=== PATIENT | female | born 1970 | race Caucasian/White ===

== ENCOUNTER 2020-09-27 16:25 | Emergency (ER) | payer OTHER ==
[~2020-09-27 16:25] MED LIST: AMARYL4 MG PO; ASPIR-LOW81 MG PO; ASPIRIN EC81 MG PO; ATORVASTATIN CA40 MG PO; BENTYL 20MG TAB20 MG PO; BRILINTA PO; BRILINTA90 MG PO; CAMILA0.35 MG PO; CETIRIZINE HCL10 MG PO; CETIRIZINE HCL5 MG PO; COL-RITE100 MG PO; COZAAR50 MG PO; DILAUDID 2 MG TA2 MG PO; FUROSEMIDE20 MG PO; GLIMEPIRIDE4 MG PO; IMDUR ER TAB 3030 MG PO; ISOSORBIDE MONO30 MG PO; LIPITOR TAB 2020 MG PO; LOPRESSOR50 MG PO; LOSARTAN POTASS50 MG PO; METFORMIN HCL500 MG PO; METOPROLOL TART50 MG PO; MONTELUKAST SOD10 MG PO; NITROGLYCERIN0.4 MG SL; NITROSTAT0.4 MG SL; PANTOPRAZOLE SO40 MG PO; PROTONIX40 MG PO; ZOFRAN ODT 4 MG4 MG PO
== END 2020-09-27 18:45 | disposition home or self-care (01) ==
LOC: ER1 16:25
DX: S31.139A Puncture wound of abdominal wall without foreign body, unspecified quadrant without penetration into peritoneal cavity, initial encounter (principal); E11.9 Type 2 diabetes mellitus without complications; I25.2 Old myocardial infarction; X58.XXXA Exposure to other specified factors, initial encounter
CPT/HCPCS: 74018; 99284

== ENCOUNTER → 2021-10-10 | Outpatient (CLI) | payer OTHER | LOC: HEART 5 07:45 | DX: I42.0 Dilated cardiomyopathy (principal); I25.5 Ischemic cardiomyopathy | CPT/HCPCS: 78452; A9502 ==

== ENCOUNTER → 2021-11-10 | Outpatient (CLI) | payer OTHER ==
[~2021-11-10] MED LIST changes: +HUMALOG100 UNIT/2 SC; +LANTUS SOL100 UNIT/1 SQ; +RANEXA500 MG PO; +VICTOZA 3-0.6 MG/0.1 SQ
[2021-11-10 07:03] LABS: HEMOGLOBIN 13.2 gm/dl (12.3-15.3); RED BLOOD COUNT 4.26 M/UL (4.00-5.10); WHITE BLOOD COUNT 5.1 K/UL (4.5-11.0)
[2021-11-10 07:26] LABS: BUN/CREATININE RATIO 17 (0-10)
== END ==
LOC: CATH 06:28
PROVIDERS: Internal Medicine Cardiovascular Disease
DX: I25.119 Atherosclerotic heart disease of native coronary artery with unspecified angina pectoris (principal); I10 Essential (primary) hypertension
CPT/HCPCS: 71045; 80048; 82962; 85025; 85347; 85610; 93005; 99152; 99153; C1725; C1769; C1887; C1894; J1644; J2250; J3010; J7030; Q9967

== ENCOUNTER → 2021-11-15 | Outpatient (CLI) | payer OTHER | LOC: CATH 06:20 | DX: T82.855A Stenosis of coronary artery stent, initial encounter (principal); I25.708 Atherosclerosis of coronary artery bypass graft(s), unspecified, with other forms of angina pectoris; F41.9 Anxiety disorder, unspecified; I25.5 Ischemic cardiomyopathy; I95.9 Hypotension, unspecified; I10 Essential (primary) hypertension; E11.9 Type 2 diabetes mellitus without complications; M19.90 Unspecified osteoarthritis, unspecified site; J45.909 Unspecified asthma, uncomplicated; K21.9 Gastro-esophageal reflux disease without esophagitis; I25.2 Old myocardial infarction; Z88.6 Allergy status to analgesic agent; Z88.8 Allergy status to other drugs, medicaments and biological substances; Z82.49 Family history of ischemic heart disease and other diseases of the circulatory system; Z87.891 Personal history of nicotine dependence; Z20.822 Contact with and (suspected) exposure to COVID-19; Y71.2 Prosthetic and other implants, materials and accessory cardiovascular devices associated with adverse incidents; Y83.2 Surgical operation with anastomosis, bypass or graft as the cause of abnormal reaction of the patient, or of later complication, without mention of misadventure at the time of the procedure | CPT/HCPCS: 82962; 99152; C1769; J0153; J1644; J2250; J3010; J7030; Q9967 ==

== ENCOUNTER → 2022-03-29 | Outpatient (CLI) | payer OTHER | LOC: HEART 5 13:06 | DX: J45.909 Unspecified asthma, uncomplicated (principal); R06.02 Shortness of breath | CPT/HCPCS: 94060; 94729; 95012 ==